=== PATIENT | female | born 1985 | race Caucasian/White ===

== ENCOUNTER 2017-03-14 07:39 | Outpatient (CLI) | payer OTHER | END 2017-03-14 07:40 | disposition home or self-care (01) | LOC: SONOGRAMA 07:39 | DX: E04.1 Nontoxic single thyroid nodule (principal) ==

== ENCOUNTER 2024-07-29 12:30 | Inpatient (IN) | payer OTHER ==
[~2024-07-29] VITALS: Wt 77.1 kg
[2024-07-29] MEDS ORDERED: SYNTHROID75 MCG PO (13:01)
[2024-07-29] MEDS ORDERED: NORA-BE0.35 MG (13:01)
[2024-07-29 17:13] LABS: RH NEGATIVE
[2024-08-07] MEDS ORDERED: METRONIDAZOLE/SODIUM CHLORIDE 500 MG/100 ML PIGGYBACK IV ONE (07:22)
[2024-08-07] MEDS ORDERED: CEFTRIAXONE SODIUM 2,000 MG VIAL ONE (07:22)
[2024-08-07] MEDS ORDERED: BUPIVACAINE HCL/MPF 0.5% 30ML VIAL ONE (07:34)
[2024-08-07] MEDS ORDERED: VISTASEAL DUAL APPICATOR 1 EACH APPL TOP ONE (07:37)
[2024-08-07] MEDS ORDERED: LIDOCAINE HCL 1%/EPINEPHRINE 20ML VIAL IJ ONE (07:38)
[2024-08-07] MEDS ORDERED: THROMBIN,HU/FIBRINOGEN/CALCIUM 10 ML SYRINGE TOP ONE (07:38)
[2024-08-07] MEDS ORDERED: LIDOCAINE HCL 1% 20 ML VIAL IJ ONE (07:39)
[2024-08-07] MEDS ORDERED: POVIDONE-IODINE 118 ML BOTT TOP ONE (07:39)
[2024-08-07] MEDS ORDERED: CHLORHEXIDINE GLUCONATE 120 ML BOTTLE TOP ONE (10:14)
[2024-08-07] MEDS ORDERED: SUGAMMADEX SODIUM 200 MG/2 ML VIAL IV ONE (12:24)
[2024-08-07] MEDS ORDERED: HYDROGEN PEROXIDE 473 ML BOTTLE TOP ONE (12:53)
[2024-08-07] MEDS ORDERED: ONDANSETRON HCL 2 MG/ML VIAL IV PRN (13:00)
[2024-08-07] MEDS ORDERED: DEXTROSE 50 % IN WATER 0.5 G/ML VIAL IV PRN (13:00)
[2024-08-07] MEDS ORDERED: RINGERS SOLUTION,LACTATED 1,000 ML IV SCH (13:00)
[2024-08-07] MEDS ORDERED: OxyCODONE HCL 5 MG TABLET (ROXICODONE) PO PRN (13:00)
[2024-08-07] MEDS ORDERED: HYOSCYAMINE SULFATE 0.125 MG TAB.SUBL SL SCH (13:00)
[2024-08-07] MEDS ORDERED: MORPHINE SULFATE 4 MG/ML CARTRIDGE IV PRN (13:00)
[2024-08-07] MEDS ORDERED: MORPHINE SULFATE 4 MG/ML VIAL IV ONE (13:20)
[2024-08-07] MEDS ORDERED: ACETAMINOPHEN 500 MG GEL..CAP PO SCH (14:00)
[2024-08-07] MEDS ORDERED: FAMOTIDINE/PF 20 MG/2 ML VIAL IV PUSH NR (16:00)
[2024-08-07 16:46] LABS: BASO % 0.1 % (0.1-1.2); HEMATOCRIT 38.2 % (34.1-44.9); LYMPH # 0.42 (1.18-3.74); LYMPH % 2.7 % (19.3-53.1); MEAN CORPUSCULAR HEMOGLOBIN 29.6 pg (25.6-32.2); MONO # 0.99 (0.24-0.82); MONO % 6.4 % (4.7-12.5); NEUT % 90.5 % (34.0-71.1); PLATELET COUNT 281 K/uL (163-369); RED BLOOD COUNT 4.39 M/uL (3.93-5.22); RED CELL DISTRIBUTION WIDTH 12.4 % (11.6-14.4)
[2024-08-07] MEDS ORDERED: METOCLOPRAMIDE HCL 5 MG/ML VIAL IV SCH (17:00)
[2024-08-07] MEDS ORDERED: GABAPENTIN 300 MG CAPSULE PO SCH (17:00)
[2024-08-07 18:27] VITALS: BP 136/84
[2024-08-07] MEDS ORDERED: FAMOTIDINE/PF 20 MG/2 ML VIAL IV PUSH SCH (21:00)
[2024-08-07] MEDS ORDERED: CELECOXIB 200 MG CAPSULE PO SCH (21:00)
[2024-08-08 01:18] VITALS: BP 113/72
[2024-08-08] MEDS ORDERED: PATIENTS OWN MEDICATION (MEDICAMENTO EN PISO) PO SCH (06:00)
[2024-08-08 08:33] LABS: BASO % 0.3 % (0.1-1.2); EOS # 0.02 (0.04-0.54); EOS % 0.2 % (0.7-7.0); HEMATOCRIT 33.5 % (34.1-44.9); HEMOGLOBIN 11.8 g/dL (11.2-15.7); LYMPH # 0.77 (1.18-3.74); LYMPH % 8.1 % (19.3-53.1); MEAN CORPUSCULAR HEMOGLOBIN 30.5 pg (25.6-32.2); MONO # 0.74 (0.24-0.82); MONO % 7.8 % (4.7-12.5); NEUT # 7.92 (1.56-6.13); NEUT % 83.3 % (34.0-71.1); PLATELET COUNT 215 K/uL (163-369); RED BLOOD COUNT 3.87 M/uL (3.93-5.22); RED CELL DISTRIBUTION WIDTH 12.5 % (11.6-14.4)
[2024-08-08 08:46] VITALS: BP 100/66; O2SAT 98
[2024-08-08] MEDS ORDERED: LACTOBACILLUS ACIDOPHILUS 1 CAP CAP PO SCH (09:00)
[2024-08-08 09:16] LABS: CALCIUM 8.8 mg/dL (8.5-10.1); CREATININE SERUM 0.74 mg/dL (0.55-1.02); GFR 87.83; MAGNESIUM 1.8 mg/dL (1.8-2.4); PHOSPHOROUS 2.9 mg/dL (2.5-4.9); POTASSIUM 3.57 mEq/L (3.5-5.1)
[2024-08-08 16:00] VITALS: BP 90/60; O2SAT 99
[2024-08-08] MEDS ORDERED: ENOXAPARIN SODIUM 40 MG/0.4 ML SYRINGE SUBCUTANEO SCH (17:00)
[2024-08-09 00:58] VITALS: BP 89/57; O2SAT 98
[2024-08-09 06:59] LABS: BASO % 0.5 % (0.1-1.2); EOS # 0.17 (0.04-0.54); EOS % 1.5 % (0.7-7.0); HEMATOCRIT 33.9 % (34.1-44.9); HEMOGLOBIN 11.6 g/dL (11.2-15.7); LYMPH % 15.1 % (19.3-53.1); MEAN CORPUSCULAR HEMOGLOBIN 30.1 pg (25.6-32.2); MONO # 0.73 (0.24-0.82); MONO % 6.5 % (4.7-12.5); NEUT % 76.1 % (34.0-71.1); PLATELET COUNT 247 K/uL (163-369); RED BLOOD COUNT 3.86 M/uL (3.93-5.22); RED CELL DISTRIBUTION WIDTH 12.8 % (11.6-14.4)
[2024-08-09 07:29] LABS: CALCIUM 9.1 mg/dL (8.5-10.1); CREATININE SERUM 0.75 mg/dL (0.55-1.02); GFR 86.48; MAGNESIUM 2.1 mg/dL (1.8-2.4); POTASSIUM 4.12 mEq/L (3.5-5.1)
[2024-08-09] MEDS ORDERED: ENOXAPARIN SODIUM 40 MG/0.4 ML SYRINGE SUBCUTANEO SCH (09:00)
[2024-08-09 09:32] VITALS: BP 90/38; O2SAT 99
[2024-08-09 16:20] VITALS: BP 90/50; O2SAT 97
[2024-08-10 01:12] VITALS: BP 100/60; O2SAT 97
[2024-08-10 08:00] VITALS: BP 107/73
== END 2024-08-10 14:08 | disposition home or self-care (01) | DRG 743 ==
LOC: O/R 08-07 05:34 → SURH 08-07 12:30 → OB/GYN 08-07 16:07
PROVIDERS: Internal Medicine Geriatric Medicine; Surgery; Urology; ADMIT Obstetrics & Gynecology Gynecology; ATTEND Obstetrics & Gynecology Gynecology
PROC: 0DTP4ZZ Resection of Rectum, Percutaneous Endoscopic Approach (ICD-10-PCS; 2024-08-07)
PROC: 0DNW4ZZ Release Peritoneum, Percutaneous Endoscopic Approach (ICD-10-PCS; 2024-08-07)
PROC: 0DNJ4ZZ Release Appendix, Percutaneous Endoscopic Approach (ICD-10-PCS; 2024-08-07)
PROC: 0TN74ZZ Release Left Ureter, Percutaneous Endoscopic Approach (ICD-10-PCS; 2024-08-07)
PROC: 0TN64ZZ Release Right Ureter, Percutaneous Endoscopic Approach (ICD-10-PCS; 2024-08-07)
PROC: 0DTJ4ZZ Resection of Appendix, Percutaneous Endoscopic Approach (ICD-10-PCS; 2024-08-07)
PROC: 0DTJ4ZZ Resection of Appendix, Percutaneous Endoscopic Approach (ICD-10-PCS; 2024-08-07)
PROC: 0T788DZ Dilation of Bilateral Ureters with Intraluminal Device, Via Natural or Artificial Opening Endoscopic (ICD-10-PCS; 2024-08-07)
PROC: 0DJD8ZZ Inspection of Lower Intestinal Tract, Via Natural or Artificial Opening Endoscopic (ICD-10-PCS; 2024-08-07)
PROC: 0TNB4ZZ Release Bladder, Percutaneous Endoscopic Approach (ICD-10-PCS; 2024-08-07)
PROC: 0UT94ZZ Resection of Uterus, Percutaneous Endoscopic Approach (ICD-10-PCS; principal; 2024-08-07 12:30)
PROC: 0UT74ZZ Resection of Bilateral Fallopian Tubes, Percutaneous Endoscopic Approach (ICD-10-PCS; 2024-08-07 12:30)
PROC: 0UT24ZZ Resection of Bilateral Ovaries, Percutaneous Endoscopic Approach (ICD-10-PCS; 2024-08-07 12:30)
DX: D25.1 Intramural leiomyoma of uterus (principal); D25.2 Subserosal leiomyoma of uterus; N80.123 Deep endometriosis of bilateral ovaries; N80.312 Deep endometriosis of the anterior cul-de-sac; N80.519 Endometriosis of the rectum, unspecified depth; N80.103 Endometriosis of bilateral ovaries, unspecified depth; N80.203 Endometriosis of bilateral fallopian tubes, unspecified depth; D27.1 Benign neoplasm of left ovary; D27.0 Benign neoplasm of right ovary; N80.00 Endometriosis of the uterus, unspecified